=== PATIENT | male | born 1950 | race Asian ===

== ENCOUNTER → 2019-11-01 14:44 | Outpatient (CLI) | payer MEDICARE, SELFPAY ==
--- NOTE | 2019-11-01 14:59 | XR_ITS ---
PROCEDURE: XR CHEST 2V CLINICAL HISTORY: CHEST PAIN COMPARISON: No exams were available for comparison FINDINGS: The cardiomediastinal silhouette and pulmonary vascularity are within normal limits. The lungs are clear without infiltrates, suspicious nodules, or pleural effusions. Mild thoracic curvature convex right IMPRESSION: No acute findings. Dictated by: Randal Fitzpatrick MD 11/01/2019 15:38 Electronically signed by Randal Fitzpatrick MD in [place] 11/01/2019 15:38
--- NOTE | 2019-11-01 15:15 | ECG_ITS ---
APPROVED REPORT Exam: Resting ECG HR:74 bpm ECG Measurements Heart Rate 74 AXES MI 156 P 67 QRSd 82 QRS 42 QT 380 T 21 QTc 421 <Conclusion> Normal sinus rhythm Normal ECG Electronically signed by : Jesus Hernandez, 11/01/2019 17:45:20
[2019-11-01 16:00] LABS: Basophils % 0.3 % (0.1-2.0); Eosinophils # 0.2 K/mm3 (0.0-0.4); Eosinophils % 2.9 % (0.1-12.0); Hematocrit 45.8 % (42.0-52.0); Hemoglobin 15.7 g/dL (14.1-18.0); Lymphocytes # 2.2 K/mm3 (0.7-4.5); Lymphocytes % 30.4 % (10-50); Mean Corpuscular HGB Conc 34.2 g/dL (31.8-35.4); Mean Corpuscular Hemoglobin 28.8 pg (27.0-31.2); Mean Corpuscular Volume 84.1 fl (80-94); Mean Platelet Volume 8.6 fl (7.4-10.4); Monocytes # 0.4 K/mm3 (0.1-1.0); Monocytes % 5.7 % (1.7-9.3); Neutrophils # 4.3 K/mm3 (1.8-7.8); Neutrophils % 60.8 % (37.0-80.0); Platelet Count 229 K/mm3 (142-424); Red Blood Count 5.45 M/mm3 (4.60-6.20); Red Cell Distribution Width 12.5 % (11.5-17.5); White Blood Count 7.1 K/mm3 (4.8-10.8)
[2019-11-01 16:08] LABS: Chloride 98 mmol/L (98-107); Potassium 4.1 mmoL/L (3.5-5.1); Sodium 138 mmol/L (136-145)
[2019-11-01 16:11] LABS: Anion Gap 14.1 mEq/L (5-15); Blood Urea Nitrogen 12 mg/dl (9-20); Calcium 9.5 mg/dl (8.4-10.2); Carbon Dioxide 30 mmol/L (22.0-30.0); Creatine Kinase 75 U/L (55-170); Estimated Glomerular Filt Rate 96 ml/min (>60); GFR (African American) 116 ML/MIN (>60); Glucose 106 mg/dl (74-100)
[2019-11-01 16:17] LABS: CKMB Relative Index 2.8 U/L (0-4.0); Creatine Kinase MB 2.1 ng/ml (0.0-2.03)
[2019-11-01 16:27] LABS: Troponin I < 0.01 ng/ml (0.00-0.034)
[2019-11-01 16:32] LABS: Erythrocyte Sedimentation Rate 1 mm/hr (0-20)
== END ==
PROVIDERS: Visit Provider Family Medicine
DX: R07.9 Chest pain, unspecified (principal)
CPT/HCPCS: 36415; 71046; 80048; 82550; 82553; 84484; 85025; 85651; 93005

== ENCOUNTER → 2019-11-03 08:02 | Outpatient (CLI) | payer MEDICARE, SELFPAY ==
--- NOTE | 2019-11-03 | CA_ITS ---
APPROVED REPORT Exam: Exercise Treadmill Technologist: Shanice Steen Ht: 5 ft 6 in Wt: 165 lbs BSA: 1.84 m2 HR: 78 bpm BP: 127/69 mmHg Indications: Chest pain Medical History Medications: Fluid pill,,,,, Blood pressure,,,,, Stress Test Details Test: Nba HR Resting HR: 87 bpm Max Heart Rate (APMHR): 152 bpm Max HR Achieved: 144 bpm Target HR (85% APMHR): 129 bpm % of APMHR: 94 Recovery HR: 97 bpm BP Resting BP: 127.0/69.0 mmHg Max BP: 174.0/75.0 mmHg Recovery BP: 137.0/82.0 mmHg ECG Clinical Exercise duration: 05:03 min Highest Stage Achieved: Exercise capacity: 7.0 METs Stress ECG Conclusion Resting ECG: Normal sinus rhythm Patient walked 5:03 on Nba Protocol. Test stopped due to shortness of air, fatigue. Symptoms: No chest pain. Arrhythmias/Ectopy: None ST-T Changes: [address] depression anteriorly. 1mm horizontal ST depression inferiorly with T wave inversion. Conclusion: EKG changes positive for ischemia. GXT only (no images). Test Summary REST . . . . . . . Sitting REST . . . . . . . Standing REST 04:27 0.0 0.0 87 . 127/ 69 . . Stage 1 01:00 10.0 1.7 112 . . . . Stage 1 02:00 10.0 1.7 124 . . . . Stage 1 03:00 10.0 1.7 126 . . . . Stage 2 01:00 12.0 2.5 139 . . . . Stage 2 02:00 12.0 2.5 143 . . . . Stage 2 02:03 12.0 2.5 144 . . . Stop exercise at 05:03 RECOVERY 01:00 0.0 0.0 122 . 174/ 75 . . RECOVERY 02:00 0.0 0.0 110 . 174/ 75 . . RECOVERY 03:00 0.0 0.0 107 . 174/ 75 . . RECOVERY 04:00 0.0 0.0 106 . 155/ 85 . . RECOVERY 05:00 0.0 0.0 97 . 141/ 82 . . RECOVERY 06:00 0.0 0.0 97 . 141/ 82 . . RECOVERY 07:00 0.0 0.0 93 . 137/ 82 . . RECOVERY 07:19 0.0 0.0 91 . 137/ 82 . . Electronically signed by : Jesus Hernandez, 11/03/2019 14:21:14
== END ==
PROVIDERS: PCP Family Medicine; Visit Provider Family Medicine
DX: R07.9 Chest pain, unspecified (principal)
CPT/HCPCS: 93017

== ENCOUNTER 2019-11-17 08:32 | Day surgery (SDC) | payer MEDICARE, SELFPAY ==
[2019-11-17] VITALS (13 sets, daily range): BP systolic 90–127; BP diastolic 52–77; PULSE 66–82; RESP 15–20; TEMP 36.4–36.7; O2SAT 96–99; BMI 25.8
--- NOTE | 2019-11-17 | IR_ITS ---
APPROVED REPORT Patient Location: Outpatient PROCEDURES Left heart catheterization Left ventriculogram Selective coronary angiogram INDICATION Risk factors for coronary artery disease, Angina pectoris Informed consent was obtained prior to the procedure. COMPLICATIONS none Estimated Blood Loss: less than 10 mls TECHNIQUE One percent lidocaine used to anesthetize the right anterior aspect of the wrist. The right radial artery was accessed via the Seldinger technique. A 6 Finnish sheath was placed in the right radial artery. 2.5 mg of verapamil, 800 mcg of nitroglycerin, 1mg Lidocaine and 5000 U Heparin were given through the arterial sheath. The trap catheter was also used to perform left heart catheterization, left ventriculogram and selective coronary angiogram. At the end of the procedure the sheath was removed good hemostasis was achieved using Traclet band, patient was transferred to the postop holding area in stable condition. ANGIOGRAPHIC RESULTS The left main artery Has an ostial 20% narrowing which may be anatomical and non-atherosclerotic The left anterior descending artery Is proximally normal and has a mid vessel myocardial bridge compressing to 60 to 70% with systole at rest The circumflex artery Small nondominant normal The right coronary artery Is a large dominant vessel with a proximal 20% stenosis and a distal concentric 40 to 50% stenosis. 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 At this point I favor medical management. It is unlikely the myocardial bridge is creating any type of a flow disturbance. 2. The distal right coronary artery lesion is best managed medically. Lipitor 40 mg daily will be started with a goal LDL less than 55 3. Should patient continue to experience angina pectoris recalcitrant to medical management I would then consider proceeding with FFR or possible stenting of the distal dominant right coronary artery however this lesion should respond favorably to high intensity statin therapy and antianginal medications 4. Continue risk factor modification Electronically signed by : Hernesto Williamson, 11/17/2019 14:59:10
[2019-11-17 09:12] LABS: Basophils # 0.1 K/mm3 (0-0.2); Basophils % 0.8 % (0.1-2.0); Eosinophils # 0.3 K/mm3 (0.0-0.4); Eosinophils % 4.4 % (0.1-12.0); Hematocrit 43.2 % (42.0-52.0); Lymphocytes # 1.9 K/mm3 (0.7-4.5); Lymphocytes % 27.9 % (10-50); Mean Corpuscular HGB Conc 34.6 g/dL (31.8-35.4); Mean Corpuscular Hemoglobin 28.9 pg (27.0-31.2); Mean Corpuscular Volume 83.5 fl (80-94); Mean Platelet Volume 8.7 fl (7.4-10.4); Monocytes # 0.3 K/mm3 (0.1-1.0); Monocytes % 4.7 % (1.7-9.3); Neutrophils # 4.3 K/mm3 (1.8-7.8); Neutrophils % 62.2 % (37.0-80.0); Platelet Count 191 K/mm3 (142-424); Red Blood Count 5.18 M/mm3 (4.60-6.20); Red Cell Distribution Width 12.6 % (11.5-17.5); White Blood Count 6.9 K/mm3 (4.8-10.8)
[2019-11-17 09:16] LABS: Chloride 101 mmol/L (98-107)
[2019-11-17 09:17] LABS: Potassium 3.7 mmoL/L (3.5-5.1); Sodium 137 mmol/L (136-145)
[2019-11-17 09:19] LABS: Blood Urea Nitrogen 13 mg/dl (9-20); Creatinine Clearance Estimated 73 mL/min (50-200); Estimated Glomerular Filt Rate 96 ml/min (>60); GFR (African American) 116 ML/MIN (>60)
[2019-11-17 09:20] LABS: Anion Gap 13.7 mEq/L (5-15); Calcium 9.2 mg/dl (8.4-10.2); Carbon Dioxide 26 mmol/L (22.0-30.0); Glucose 106 mg/dl (74-100)
--- NOTE | 2019-11-17 12:08 | SUR.PHASEII ---
NO ARON OR ARB AT THIS TIME PER MD.
== END 2019-11-17 14:24 | disposition home or self-care (01) ==
LOC: CATHLAB 08:34
PROVIDERS: PCP Family Medicine; Visit Provider Internal Medicine
DX: I25.118 Atherosclerotic heart disease of native coronary artery with other forms of angina pectoris (principal); I10 Essential (primary) hypertension; Z79.899 Other long term (current) drug therapy
CPT/HCPCS: 80048; 85025; 93458; 99152; C1725; C1769; J1644; Q9967

== ENCOUNTER → 2021-03-19 11:55 | Outpatient (CLI) | payer MEDICARE, SELFPAY | PROVIDERS: PCP Family Medicine; Visit Provider Family Medicine | DX: I25.118 Atherosclerotic heart disease of native coronary artery with other forms of angina pectoris (principal) | CPT/HCPCS: 93225; 93226 ==

== ENCOUNTER → 2022-05-14 07:54 | Outpatient (CLI) | payer MEDICARE, SELFPAY ==
[2022-05-14 08:53] LABS: Alanine Aminotransferase 29 U/L (12-78); Albumin Level 4.3 g/dl (3.5-5.0); Alkaline Phosphatase 75 U/L (38-126); Aspartate Amino Transferase 27 U/L (17-59); Chol/HDL Ratio 2.6 (1-3.5); Cholesterol 111 mg/dl (140-200); HDL Cholesterol 43 mg/dl (40-60); Total Protein,Serum 7.1 g/dl (6.3-8.2); Triglycerides 78 mg/dl (30-150); VLDL Cholesterol 16 mg/dL (0-40)
== END ==
PROVIDERS: PCP Psychiatry & Neurology Sleep Medicine; Visit Provider Internal Medicine
DX: E78.2 Mixed hyperlipidemia (principal)
CPT/HCPCS: 36415; 80061; 80076

== ENCOUNTER 2024-08-25 16:00 | Outpatient (RCR) | payer MEDICARE, SELFPAY ==
--- NOTE | 2024-08-11 16:03 | HMH.PTOPEV ---
PT Outpatient Evaluation Rehab PT Outpatient Evaluation Start: 08/11/24 15:02 Freq: Status: Active Protocol: Document 08/11/24 15:02 NAYELY (Rec: 08/11/24 16:03 NAYELY [id number]) E-signed By Leslie Matute, PT Outpatient Therapy Subjective History Subjective History Pt is a 73 y/o male who reports chronic bilateral knee pain for 2 years. Pt denies known trauma or injury. Pt denies having recent imaging of his knees. Pt reports generalized knee pain that is aggravated by prolonged standing >20 minutes, walking 1/4 mile, traversing steps, and traversing uneven ground. Pt reports pain is minimal- moderate and improves with rest. Pt reports he is unable to run due to pain but does not have a goal to run. Pt denies swelling, paresthesia, catching/locking/popping, or instability. Work: Supervisor [employer] of [employer] Medical History: Hypertension, Allergies Edema: tibiofemoral joint line 38.5cm R, 39 cm L New diagnosis of cancer in past 12 No months? Chief Complaint Pain,Stiff Symptom Type Ache,Dull Symptoms Relieved By Rest/Positioning,Activity Symptoms Aggravated By Standing,Physical Activity, Walking Current Functional Limitations Standing,Recreation Activity, Walking,Stairs Symptom Description Constant but Variable Level of pain today (0-10) 0 Pain scale - at its best (0-10) 0 Pain scale - at its worst (0-10) 4 Hip/Knee Eval Gait Observation General Gait Pattern Observation No Deviations/Normal Assistive Device Assistive Devices None / NA Palpation Tenderness bilateral Knee Palpation Finding Tenderness Knee Palpation Overall Comment 1/4 TTP of medial tibiofemoral joint line MMT Hip Flexion Strength Grade 4 Good Hip Abduction Strength Grade 4 Good Hip Adduction Strength Grade 4 Good Hip Extension Strength Grade 4- Good- Knee Extension Strength Grade 4 Good Knee Flexion Strength Grade 4- Good- ROM left Knee Extension Active Range of Motion ( 0 degrees) Knee Flexion Active Range of Motion ( 125 degrees) right Knee Extension Active Range of Motion ( 0 degrees) Knee Flexion Active Range of Motion ( 125 degrees) Special Tests Knee Anterior Drawer Test Negative Left,Negative Right Knee Anterior Masha Test Negative Left,Negative Right Knee Posterior Sag ([place] Drawer) Test Negative Left,Negative Right Knee Valgus Stress Test Negative Left,Negative Right Knee Varus Stress Test Negative Left,Negative Right Knee Denise Test Negative Left,Negative Right Lower Extremity Functional Index Activities Today, do you or would you have any difficulty at all with: a.Any of your usual work, housework or No difficulty school activities b. Your usual hobbies, recreational or A little bit of difficulty sporting activities c. Getting into or out of the bath No difficulty d. Walking between rooms No difficulty e. Putting on your shoes or socks No difficulty f. Squatting No difficulty g. Lifting an object, like a bag of No difficulty groceries from the floor h. Performing light activities around No difficulty your home i. Performing heavy activities around No difficulty your home j. Getting into or out of a car No difficulty k. Walking 2 blocks No difficulty l. Walking a mile A little bit of difficulty m. Going up or down 10 stairs (about 1 No difficulty flight of stairs) n. Standing for 1 hour A little bit of difficulty o. Sitting for 1 hour No difficulty p. Running on even ground Quite a bit of difficulty q. Running on uneven ground Quite a bit of difficulty r. Making sharp turns while running fast Quite a bit of difficulty s. Hopping A little bit of difficulty t. Rolling over in bed No difficulty LEFI Score Lower Extremity Functional Index Score 67 Outpatient Therapy Assessment Impairments Problems/Impairmments Palpation Tenderness,Impaired Strength,Impaired Walking, Impaired Standing,Impaired Stair Climbing,Impaired Incline Stepping,Impaired Work Activities,Subjective C/O Pain,Impaired Self Care/Self Management Prognosis Rehab Potential Good Clinical Impression Consistent with Diagnosis Yes Short Term Goals Number of Weeks 3 Improve Self Care/Self Management Yes Patient to be Ind w/ HEP Yes Penitentiary Goals Number of Weeks 6 Increase Strength Yes: Improve BLE MMT to 4+-5/5 grossly to assist with function Increase Ability to Walk Yes: .5 mile with pain 2/10 or less to assist with occupation Increase Ability to Stand Yes: 30 minutes with pain 2/10 or less to assist with occupation Improve Ability to Climb Stairs Yes: 1 flight reciprocally without pain to assist with work navigation Improve LEFI Score Yes: Improve score to 72/80 to improve overall QOL Decrease Subjective C/O Pain Yes: Improve pain at worst to 2/10 to improve overall QOL Outpatient Therapy Plan of Care Treatment Plan May Include Therapeutic Exercise Including Home Yes Exercise Program Manual Therapy Techniques Yes Neuromuscular Re-education Yes Therapeutic Activities to Return to Yes Previous Functional/Work Level Gait Training Yes ADL/Self Care Education Yes Dry Needling Yes Thermal Modalities Yes Electrical Stimulation Yes Ultrasound/Phonophoresis Yes Iontophoresis Yes Orthotics/Bracing/Splinting Yes Vasopneumatic Compression Pump Yes Massage Yes Group Therapy for Medicare Yes Eval/Re-Eval Yes Frequency Times per week 1-2 Duration Number of Weeks 4-6 Addendums This patient is a candidate for social No or vocational rehab? Patient/Guardian verbally acknowledges Yes understanding of treatment program and consents to further treatment? Patient/Guardian verbally acknowledges Yes understanding of diagnosis, prognosis and goals for treatment? Eval Complexity PT Charges 21609 - Low Complexity Shoulder/Elbow Eval Shoulder Objective Measurements Elbow Objective Measurements PHYSICIAN CERTIFICATION: I certify the specified therapy services for Pablo Alford are required, authorized, and reviewed every 30 days.
== END 2024-08-25 23:59 | disposition home or self-care (01) ==
LOC: PT 16:00
PROVIDERS: Visit Provider Family Medicine
DX: M25.561 Pain in right knee (principal); M25.562 Pain in left knee
CPT/HCPCS: 97110; 97163; 97530

== ENCOUNTER 2024-09-15 15:00 | Outpatient (RCR) | payer MEDICARE, SELFPAY ==
--- NOTE | 2024-09-08 15:26 | HMH.RHREAS ---
Rehab Reassessment Rehab OP Re-assessment Start: 09/01/24 14:59 Freq: Status: Active Protocol: Document 09/08/24 15:06 SUSANJONATHAN (Rec: 09/08/24 15:26 MOHITGomez [id number]) E-signed By Leslie Matute PT Lower Extremity Functional Index Activities Today, do you or would you have any difficulty at all with: a.Any of your usual work, housework or No difficulty school activities b. Your usual hobbies, recreational or Moderate difficulty sporting activities c. Getting into or out of the bath No difficulty d. Walking between rooms No difficulty e. Putting on your shoes or socks No difficulty f. Squatting No difficulty g. Lifting an object, like a bag of No difficulty groceries from the floor h. Performing light activities around No difficulty your home i. Performing heavy activities around No difficulty your home j. Getting into or out of a car No difficulty k. Walking 2 blocks No difficulty l. Walking a mile A little bit of difficulty m. Going up or down 10 stairs (about 1 No difficulty flight of stairs) n. Standing for 1 hour No difficulty o. Sitting for 1 hour No difficulty p. Running on even ground Quite a bit of difficulty q. Running on uneven ground Quite a bit of difficulty r. Making sharp turns while running fast Quite a bit of difficulty s. Hopping No difficulty t. Rolling over in bed No difficulty LEFI Score Lower Extremity Functional Index Score 68 Rehab Re-assessment Subjective Subjective Pt reports he feels 40% improved since starting PT. Pt reports continued minimal- moderate bilateral medial knee pain with prolonged standing and walking >15 minutes. Pt also reports stiffness of B knee with prolonged standing. Pt reports compliance with HEP which he states is helping overall. Objective Objective Notes TTP: 05/01 medial tibiofemoral joint line B BLE MMT: 07/31 grossly Assessment Assessment Notes Pt has attended 4 PT treatment sessions 1x/week per pt request along with HEP. Pt continues to report stiffness and minimal-moderate bilateral medial knee pain with functional activities such as prolonged standing, walking and stair climbing required for his occupation. Pt will continue to benefit from skilled PT to further improved subjective report of pain, BLE strength, and functional/ occupational activity tolerance to improve overall QOL. Patient goals met ST/2 LT/6 Goals Not Met p! at worst, strength, LEFS score, work activities Revised Goals n/a Plan Plan Continue POC Frequency of Therapy 1-2x/week Duration of therapy 4 more weeks Time and Billing Re-Eval Time 10 Re-Eval Billing Units 0 Charge for PT reassessment? No Charge for OT reassessment? No PHYSICIAN CERTIFICATION: I certify the specified therapy services for Pablo L Prashanth are required, authorized, and reviewed every 30 days.
== END 2024-09-15 23:59 | disposition home or self-care (01) ==
LOC: PT 15:00
PROVIDERS: Visit Provider Family Medicine
DX: M25.562 Pain in left knee (principal); M25.561 Pain in right knee
CPT/HCPCS: 97110

== ENCOUNTER 2024-11-15 08:05 | Outpatient (CLI) | payer MEDICARE, SELFPAY ==
--- OUTSIDE RECORDS SUMMARY | 2024-02-06 06:15 | XMS_ITS ---
[facility] [address] [facility] [address] [place] [id number] Care Team Providers Care Fur Scraper Name Role Phone Harry Cabrera Primary Care Provider Allergies No Known Allergies Results Component Value Reference Range Notes Cologuard Reviewed date:04/14/2024 03:39:19 PM Interpretation:Negative Performing Lab: Notes/Report: Negative Cologuard Negative P-Vitamin B12 Reviewed date:02/10/2024 04:16:48 PM Interpretation:297 Performing Lab: Notes/Report: Test performed by [facility] [address] [place] [address] , [address], [place] [address] Audi Ordonez MD, Tow Operator CLIA: [id number] Vitamin B12 850 028-0340 pg/mL P-Comprehensive Metabolic Pa melodie (CMP) Reviewed date:02/10/2024 04:16:48 PM Interpretation:gluc 102 Performing Lab: Notes/Report: Test performed by [facility] [address] [place] [address] , [address], [place] [address] Audi Ordonez MD, Tow Operator CLIA: [id number] Sodium 139 135-145 mmol/L Potassium 4.3 3.5-5.3 mmol/L Chloride 103 97-108 mmol/L CO2 27 22-32 mmol/L Glucose 102 65-99 mg/dL BUN 12 8-23 mg/dL Creatinine 0.92 0.70-1.30 mg/dL Calcium 9.4 8.6-10.4 mg/dL eGFR by Creatinine 88 >59 mL/min/1.73m2 Protein 7.1 6.0-8.3 g/dL Albumin 4.4 3.5-5.3 g/dL Alkaline Phosphatase 74 40-129 IU/L ALT (SGPT) 21 <5-55 IU/L AST (SGOT) 23 <5-46 IU/L Bilirubin, Total 1.2 <0.2-1.2 mg/dL A/G Ratio 1.6 1.1-2.5 P-PSA Reviewed date:02/10/2024 04:16:48 PM Interpretation:Normal Performing Lab: Notes/Report: Test performed by [facility] [address] [place] [address] , [address], [place] [address] Audi Ordonez MD, Tow Operator CLIA: [id number] PSA 0.34 <4.00 ng/mL Please note this is an ultrasensitive PSA assay with a lower limit of detection of 0.014 ng/mL. This test is performed by the Francine ECLIA methodology. Values obtained with different assay methods or kits cannot be directly compared. REASON FOR VISIT checkup, Needs labs with PSA, colon cancer screening, Prevnar, & flu vaccines Medications Medication SIG (Take, Route, Frequency, Duration) Notes Start Date End Date Status B-12 1000 MCG 1 tab(s) orally once a day; Duration: 30 day(s) 11/26/2018 Active Isosorbide Mononitrate ER 60 MG 1 tab(s) orally once a day (in the evening) Active Metoprolol Succinate ER 25 MG TK 1 T PO DAILY; Duration: 30 Active Triamcinolone Acetonide 0.1 % 1 application Externally Twice a day 02/06/2024 Active Aspirin 81 MG 1 tab(s) orally bedtime 03/22/2015 Active Levocetirizine Dihydrochloride 5 MG 1 tab(s) orally once a day (in the evening); Duration: 90 days Active Valsartan-hydroCHLOROthiazid e 80-12.5 MG 1 tab(s) orally once a day Active CoQ10 200 MG as directed orally o nce a day; Duration: 30 day(s) 08/01/2020 Active Atorvastatin Calcium 40 MG 1 tab(s) oral ly once a day Active Nitroglycerin 0.4 MG one tablet under to ngue as needed for chest pain every 5 minutes Active Immunizations Vaccine Route Administration Date Status Comme nts Fluzone High Dose (65yr and older) IM Intramuscular 02/06/2024 Administered Prevnar (PCV20) IM Intramuscular 02/06/2024 Administered Problems Problem Type SNOMED Code ICD Code Onset Dates Problem Status W/U Status Risk Notes Problem Allergic rhinitis, unspecified seasonality, unspecified trigger (J30.9) Active confirmed Vital Signs Blood pressure systolic 120 mm Hg 02/06/20 24 Blood pressure diastolic 66 mm Hg 024 Heart Rate 66 /min 02/06/2024 Height 65.50 in 02/06/2024 Weight 164.8 lbs 02/06/2024 BMI 27.00 kg/m2 02/06/2024 Encounters Encounter Location Date Provider Diagnosis [facility] [address] [place] [id number] 02/06/2024 Harry Cabrera Essential (primary) hypertension I10 ; Coronary artery disease involving tangirnaq coronary artery of tangirnaq heart with other form of angina pectoris I25.118 ; Vitamin B12 deficiency E53.8 ; Benign prostatic hyperplasia without lower urinary tract symptoms, prostatic enlargement of unspecified morphology N40.0 ; Rhus dermatitis L25.5 ; Allergic rhinitis, unspecified seasonality, unspecified trigger J30.9 ; Screen for colon cancer Z12.11 and Encounter for immunization Z23 Assessments Encounter Date Diagnosis (ICD Code) Assessment Notes Treatment Notes Treatment Clinical Notes Section Notes 02/06/2024 Essential (primary) hypertension (ICD-10 - I10) 02/06/2024 Coronary artery disease involving tangirnaq coronary artery of tangirnaq heart with other form of angina pectoris (ICD-10 - I25.118) 02/06/2024 Vitamin B12 deficiency (ICD-10 - E53.8) 02/06/2024 Benign prostatic hyperplasia without lower urinary tract symptoms, prostatic enlargement of unspecified morphology (ICD-10 - N40.0) 02/06/2024 Rhus dermatitis (ICD-10 - L25.5) 02/06/2024 Allergic rhinitis, unspecified seasonality, unspecified trigger (ICD-10 - J30.9) 02/06/2024 Screen for colon cancer (ICD-10 - Z12.11) 02/06/2024 Encounter for immunization (ICD-10 - Z23) Plan Of Treatment Medication Medication Name Sig Start Date Stop Date Notes Triamcinolone Acetonide 0.1 % 1 applicat ion Externally Twice a day 02/06/2024 Levocetirizine Dihydrochlori de 5 MG 1 tab(s) orally once a day (in the evening); Duration: 90 days Valsartan-hydroCHLOROthiazid e 80-12.5 MG 1 tab(s) orally once a day Next Appt Details Follow Up: 6 Months, Reason: Progress Notes * Pablo PLASENCIADOB:1950 (74 yo M)Acc No.[id number]:02/06/2024 Progress Notes Patient: Pablo LACY Provider: Harry Cabrera M.D. :1950 A ge:73 Y S ex:Male Date:02/06/2024 Address:[address] [place] [address] [address] [facility] [id number] Subjective: * Chief Complaints: * 1 . Checkup. 2. Needs labs with PSA, colon cancer screening, Prevnar, & flu vaccines. * HPI: C ardiology: The patient is here today for a check up on Hypertension and Hyperlipidemia. Pt states he doing good and denies any new concerns. Pt is not fasting. Pt states he is needing a refill for Levocetirizine and Valsartan/Hct sent to [facility]. Pt states he would like a prescription for the Triamcinolone cream as well. Denies : Chest Pain. D enies : Short of Breath. D enies : Dizziness. D enies : Palpitations. D ermatology: c/o rash f rom cutting weeds. * ROS: D ERMATOLOGY: no R sanya. n o H schuyler. G ASTROENTEROLOGY: no N ausea. n o V omiting. n o D iarrhea.? U ROLOGY: no D ifficulty urinating. n o B lood in urine. * Medical History: C oronary Artery Disease, Hypertension, Vitamin B 12 deficiency, BPH. * Surgical History: h eart Cath 11/2019. * Family History: F ather: 71 yrs, pancreatitis. M other: alive, hypertension, COPD. S iblings: brother with diabetes. 1 brother(s) , 4 sister(s) . 1 son(s) , 1 daughter(s) . . * Social History: C URRENT TOBACCO USE S moking Status: Patient does NOT smoke. C affeine: yes, frequency:coffee. Home smoke detector use: yes. Marital Status: . Past smoking status: no. Alcohol: Yes, Type: , Frequency: ,Years: , Determination:3-4 days each week. * Medications: T aking Aspirin 81 MG Tablet Chewable 1 tab(s) orally bedtime , Taking B-12 1000 MCG Tablet 1 tab(s) orally once a day , Taking Metoprolol Succinate ER 25 MG Tablet Extended Release 24 Hour TK 1 T PO DAILY , Taking Isosorbide Mononitrate ER 60 MG Tablet Extended Release 24 Hour 1 tab(s) orally once a day (in the evening) , Taking Atorvastatin Calcium 40 MG Tablet 1 tab(s) orally once a day , Taking CoQ10 200 MG Capsule as directed orally once a day , Taking Nitroglycerin 0.4 MG Tablet Sublingual one tablet under tongue as needed for chest pain every 5 minutes , Taking Valsartan-hydroCHLOROthiazide 80-12.5 MG Tablet 1 tab(s) orally once a day , Taking Levocetirizine Dihydrochloride 5 MG Tablet 1 tab(s) orally once a day (in the evening) , Medication List reviewed and reconciled with the patient * Allergies: N .K.D.A. Objective: * Vitals: W t:164.8, Temp:98.4, BP:120/66, HR:66, Nurse:ANJALI, Ht: 65.50, BMI:27.00. * Examination: G eneral Examination: General Appearance: N AD. H EENT: u nremarkable.?Oral cavity: n o lesions, mucosa moist and WNL, no erythema. N sridhar: s upple, no lymphadenopathy. C hest: n ormal shape and expansion. H eart: R SR. L ungs: c lear to auscultation. N eurologic Exam: I ntact, gait normal. S kin: n ormal, r esolving rash of the left lower leg and of the forearms c/w rhus. P eripheral pulses: n ormal (2+) bilaterally. E xtremities: n o leg edema. Assessment: * Assessment: 1. E ssential (primary) hypertension - I10 (Primary) 2 . C oronary artery disease involving tangirnaq coronary artery of tangirnaq heart with other form of angina pectoris - I25.118? 3. V itamin B12 deficiency - E53.8 4 . B enign prostatic hyperplasia without lower urinary tract symptoms, prostatic enlargement of unspecified morphology - N40.0 5 . R hus dermatitis - L25.5 6 . A llergic rhinitis, unspecified seasonality, unspecified trigger - J30.9 7 . S creen for colon cancer - Z12.11 8 . E ncounter for immunization - Z23 Plan: * Treatment: Value Reference Range A /G Ratio 1.6 1.1-2.5 - * A lbumin 4.4 3.5-5.3 - g/dL * A lkaline Phosphatase 74 40-129 - IU/L * A LT (SGPT) 21 <5-55 - IU/L * A ST (SGOT) 23 <5-46 - IU/L * B ilirubin, Total 1.2 <0.2-1.2 - mg/dL * B UN 12 8-23 - mg/dL * C alcium 9.4 8.6-10.4 - mg/dL * C hloride 103 97-108 - mmol/L * C O2 27 22-32 - mmol/L * C reatinine 0.92 0.70-1.30 - mg/dL * G lucose 102 H 65-99 - mg/dL * P otassium 4.3 3.5-5.3 - mmol/L * S odium 139 135-145 - mmol/L * P rotein 7.1 6.0-8.3 - g/dL * e GFR by Creatinine 88 >59 - mL/min/1.73m2 * Cherelle Mcknight 02/10/2024 4:16 :39 PM >See phone encounter 2.?Vitamin B12 deficiency?LAB: P-Vitamin B12 (Collection Date & Time - 02/06/2024 10:05 AM)?297* Value Reference Range V itamin B12 760 295-2437 - pg/mL * Cherelle Mcknight 02/10/2024 4:16 :39 PM >See phone encounter 3.?Benign prostatic hyperplasia without lower urinary tract symptoms, prostatic enlargement ofunspecified morphology?LAB: P-PSA (Collection Date & Time - 02/06/2024 10:05 AM)?Normal* Value Reference Range P SA 0.34 <4.00 - ng/mL * Cherelle Mcknight 02/10/2024 4:16 :39 PM >See phone encounter 4.?Allergic rhinitis, unspecified seasonality, unspecified trigger? Refill Levocetirizine Dihydrochloride Tablet, 5 MG, 1 tab(s), orally, once a day (in the evening), 90 days, 90, Refills 1.??5.?Screen for colon cancer?LAB: Cologuard (Collection Date & Time - 02/26/2024)?Negative* Value Reference Range C ologuard Negative * Opal Almanzar 02/11/2024 11: 04:08 AM > order submitted onlineLorna Ta 04/14/2024 3:39:11 PM > , Patient informed of normal results. * Immunizations: Fluzone High Dose (65yr and older) : 0.5 mL (Route: Intramuscular) given by Lorna Ta on Right Deltoid (Encounter for immunization) Prevnar (PCV20) : 0.5 mL (Route: Intramuscular) given by Lorna Ta on Left Deltoid (Encounter for immunization) * Follow Up: 6 Months * Images: Billing Information: * Visit Code: 55945 Office Visit, Est Pt., Level 4. * Procedure Codes: * Electronic signature of Harry Cabrera MD on 11/15/2024 at 08:07 AM EDT Sign off status: Pending * Provider: Harry Cabrera M.D. Date: 1 Generated for Corneliusi ng/Fashereeng/eTransmitting on: 0 11/15/2024 08:07 AM EDT History and Physical Notes * HPI (History of Present Illness) Category Sub-Category Detail Notes Category Not es Dermatology rash from cutting weeds Cardiology Short of Breath Chest Pain Palpitations Dizziness Examination Category Sub-Category Detail Notes Category Not es General Examination HEENT: unremarkable Heart: RSR Lungs: clear to auscultatio n Extremities: no leg edema General Appearance: NAD Skin: normal, resolving ra sh of the left lower leg and of the forearms c/w rhus Neurologic Exam: Intact, gait normal Neck: supple, no lymphaden opathy Oral cavity: no lesions, mucosa m oist and WNL, no erythema Peripheral pulses: normal (2+) bilatera lly Chest: normal shape and exp ansion
--- OUTSIDE RECORDS SUMMARY | 2024-08-02 06:30 | XMS_ITS ---
Author Organization [facility] Address [address] [facility] [address] [place] [id number] Care Team Providers Care Infant Caregiver Name Role Phone Harry Cabrera Primary Care Provider Allergies No Known Allergies Results Component Value Reference Range Notes P-Vitamin B12 Reviewed date:08/05/2024 04:17:44 PM Interpretation:Normal Performing Lab: Notes/Report: Test performed by [employer] [address] [place] [address] , [address], [place] [address] Audi Ordonez MD, [employer] CLIA: [id number] Vitamin B12 [phone] pg/mL P-Comprehensive Metabolic Pa melodie (CMP) Reviewed date:08/05/2024 04:17:44 PM Interpretation:Normal Performing Lab: Notes/Report: Test performed by [employer] [address] [place] [address] , [address], [place] [address] Audi Ordonez MD, [employer] CLIA: [id number] Sodium 139 135-145 mmol/L Potassium 4.1 3.5-5.3 mmol/L Chloride 105 97-108 mmol/L CO2 22 22-32 mmol/L Glucose 102 65-99 mg/dL BUN 12 8-23 mg/dL Creatinine 0.86 0.70-1.30 mg/dL Calcium 9.1 8.6-10.4 mg/dL eGFR by Creatinine 91 >59 mL/min/1.73m2 Protein 6.6 6.0-8.3 g/dL Albumin 4.3 3.5-5.3 g/dL Alkaline Phosphatase 83 40-129 IU/L ALT (SGPT) 20 <5-55 IU/L AST (SGOT) 20 <5-46 IU/L Bilirubin, Total 0.9 <0.2-1.2 mg/dL A/G Ratio 1.9 1.1-2.5 Reason For Referral Reason knee arthropathy and pain Diagnosis 1 Knee pain (M25.569) Referral Organization [facility] Referring Provider First Name Harry Liriano Referring Provider Last Name Rick Referring Provider Speciality Family Pra ctice Referred Provider Specialty Physical The rapist General Notes Paola Inman 2024 11:43:50 AM > faxed to [facility] PT Referral Priority Routine REASON FOR VISIT check up for refills, Needs labs Medications Medication SIG (Take, Route, Frequency, Duration) Notes Start Date End Date Status CoQ10 200 MG as directed orally o nce a day; Duration: 30 day(s) 08/01/2020 Active Triamcinolone Acetonide 0.1 % 1 application Externally Twice a day 02/06/2024 Active Valsartan-hydroCHLOROthiazid e 80-12.5 MG 1 tab(s) orally once a day Active Levocetirizine Dihydrochloride 5 MG 1 tab(s) orally once a day (in the evening); Duration: 90 days Active Nitroglycerin 0.4 MG one tablet under to ngue as needed for chest pain every 5 minutes Active Atorvastatin Calcium 40 MG 1 tab(s) oral ly once a day Active Isosorbide Mononitrate ER 60 MG 1 tab(s) orally once a day (in the evening) Active Metoprolol Succinate ER 25 MG TK 1 T PO DAILY; Duration: 30 Active B-12 1000 MCG 1 tab(s) orally once a day; Duration: 30 day(s) 11/26/2018 Active Aspirin 81 MG 1 tab(s) orally bedtime 03/22/2015 Active Problems Problem Type SNOMED Code ICD Code Onset Dates Problem Status W/U Status Risk Notes Problem Arthropathy (012950335) Arthropathy (M12.9) Active confirmed Problem Knee pain (0149093129) Knee pain (M25.569) Active confirmed Problem Pure hypercholesterolemia (885993060) Pure hypercholesterolemia (E78.00) Active confirmed Vital Signs Blood pressure systolic 120 mm Hg 08/03/19 25 Blood pressure diastolic 70 mm Hg 025 Heart Rate 77 /min 08/02/2024 Height 65.50 in 08/02/2024 Weight 166.8 lbs 08/02/2024 BMI 27.33 kg/m2 08/02/2024 Encounters Encounter Location Date Provider Diagnosis [facility] [address] [facility] [address] [place] [id number] 08/02/2024 Harry Cabrera Vitamin B12 deficien cy E53.8 ; Essential (primary) hypertension I10 ; Pure hypercholesterolemia E78.0 ; Arthropathy M12.9 ; Knee pain M25.569 ; BMI 27.0-27.9,adult Z68.27 and Pure hypercholesterolemia E78.00 Assessments Encounter Date Diagnosis (ICD Code) Assessment Notes Treatment Notes Treatment Clinical Notes Section Notes 08/02/2024 Vitamin B12 deficien cy (ICD-10 - E53.8) 08/02/2024 Essential (primary) hypertension (ICD-10 - I10) 08/02/2024 Pure hypercholesterolemia (ICD-10 - E78.0) 08/02/2024 Arthropathy (ICD-10 - M12.9) 08/02/2024 Knee pain (ICD-10 - M25.569) 08/02/2024 BMI 27.0-27.9,adult (ICD-10 - Z68.27) 08/02/2024 Pure hypercholesterolemia (ICD-10 - E78.00) Plan Of Treatment Referrals Referral Date Details 08/02/2024 08/02/2024, knee art hropathy and pain Next Appt Details Follow Up: 5M, Reason: Medications Administered Medication Instructions Date of Administration Dosage Notes B-12 08/02/2024 1 mL Progress Notes * Pablo PLASENCIADOB:1950 (74 yo M)Acc No.[id number]:08/02/2024 Progress Notes Patient: Pablo LACY Provider: Harry Cabrera M.D. :1950 A ge:73 Y S ex:Male Date:08/02/2024 Address:[address] [place], [place] [id number] [id number] Subjective: * Chief Complaints: * 1 . Check up for refills. 2. Needs labs. * HPI: C ardiology: The patient is here for a check up on Hypertension and Hyperlipidemia. Pt states he is doing good and denies any new concerns. Pt states he is not fasting. Denies : Chest Pain. D enies : Short of Breath. D enies : Dizziness. D enies : Palpitations. * ROS: D ERMATOLOGY: no R sanya. [...] chest pain every 5 minutes , Taking Levocetirizine Dihydrochloride 5 MG Tablet 1 tab(s) orally once a day (in the evening) , Taking Valsartan-hydroCHLOROthiazide 80-12.5 MG Tablet 1 tab(s) orally once a day , Taking Triamcinolone Acetonide 0.1 % Ointment 1 application Externally Twice a day , Medication List reviewed and reconciled with the patient * Allergies: N .K.D.A. Objective: * Vitals: W t:166.8, Temp:98.3, BP:120/70, HR:77, Nurse:ANJALI, Ht: 65.50, BMI:27.33. * Examination: G eneral Examination: General Appearance: N AD. H EENT: u nremarkable.?Oral cavity: n o lesions, mucosa moist and WNL, no erythema. N sridhar: s upple, no lymphadenopathy. C hest: n ormal shape and expansion. H eart: R SR. Note low BP today. Lungs: c lear to auscultation. N eurologic Exam: I ntact, gait normal. S kin:?normal, no rash. P eripheral pulses: n ormal (2+) bilaterally. E xtremities: n o leg edema. Assessment: * Assessment: 1. V itamin B12 deficiency - E53.8 (Primary) 2 . E ssential (primary) hypertension - I10 3 . P ure hypercholesterolemia - E78.0 4 . A rthropathy - M12.9 5 . K nee pain - M25.569 6 . B UT 27.0-27.9,adult - Z68.27 7 . P ure hypercholesterolemia - E78.00 Plan: * Treatment: Value Reference Range V itamin B12 [phone] - pg/mL * Lorna Ta 08/05/2024 4:1 7:27 PM >Patient informed of normal results. 2.?Essential (primary) hypertension?LAB: P-Comprehensive Metabolic Panel (CMP) (Collection Date & Time - 08/02/2024 10:16 AM)?Normal* Value Reference Range A /G Ratio 1.9 1.1-2.5 - * A lbumin 4.3 3.5-5.3 - g/dL * A lkaline Phosphatase 83 40-129 - IU/L * A LT (SGPT) 20 <5-55 - IU/L * A ST (SGOT) 20 <5-46 - IU/L * B ilirubin, Total 0.9 <0.2-1.2 - mg/dL * B UN 12 8-23 - mg/dL * C alcium 9.1 8.6-10.4 - mg/dL * C hloride 105 97-108 - mmol/L * C O2 22 22-32 - mmol/L * C reatinine 0.86 0.70-1.30 - mg/dL * G lucose 102 H 65-99 - mg/dL * P otassium 4.1 3.5-5.3 - mmol/L * S odium 139 135-145 - mmol/L * P rotein 6.6 6.0-8.3 - g/dL * e GFR by Creatinine 91 >59 - mL/min/1.73m2 * Lorna Ta 08/05/2024 4:1 7:27 PM >Patient informed of normal results. 3.?Knee pain? Referral To:Physical Therapist ?Reason:knee arthropathy and pain * Therapeutic Injections: B-12 : 1 mL (Route: Intramuscular) given by Lorna Ta on right deltoid (Vitamin B12 deficiency) * Procedure Codes: G 2211 Complex e/m visit add on, J3420 B-12, 80212 ADMINISTRATION OF INJECTION, 3074F SYST BP LT 130 MM HG, 3078F DIAST BP < 80 MM HG * Follow Up: 5 M * Images: Billing Information: * Visit Code: 52286 Office Visit, Est Pt., Level 4. Modifiers: 25 * Procedure Codes: G2211 Complex e/m visit add on. J3420 B-12. 96688 ADMINISTRATION OF INJECTION. 3074F SYST BP LT 130 MM HG. 3078F DIAST BP < 80 MM HG. * Electronic signature of Harry Cabrera MD on 11/15/2024 at 08:07 AM EDT Sign off status: Pending * Provider: Harry Cabrera M.D. Date: 0 08/02/2024 Generated for Floridalma muñoz/Gillian/Christinaitting on: 0 11/15/2024 08:07 AM EDT History and Physical Notes * HPI (History of Present Illness) Category Sub-Category Detail Notes Category Not es Cardiology Short of Breath Chest Pain Palpitations Dizziness Examination Category Sub-Category Detail Notes Category Not es General Examination HEENT: unremarkable Heart: RSR. Note low BP tod ay Lungs: clear to auscultatio n Extremities: no leg edema General Appearance: NAD Skin: normal, no rash Neurologic Exam: Intact, gait normal Neck: supple, no lymphaden opathy Oral cavity: no lesions, mucosa m oist and WNL, no erythema Peripheral pulses: normal (2+) bilatera lly Chest: normal shape and exp ansion Consultation Request Notes Referral Date Referring Provider Referred Provider Not es 08/02/2024 Harry Cabrera , knee arthr opathy and pain
--- OUTSIDE RECORDS SUMMARY | 2024-08-06 06:15 | XMS_ITS ---
Author Organization [facility] Address [address] [facility] [address] [place] [id number] Care Team Providers Care Counselor Dormitory Name Role Phone Harry Cabrera Primary Care Provider REASON FOR VISIT 6 months Encounters Encounter Location Date Provider Diagnosis [facility] [address] [facility] [address] [place] [phone] 08/06/2024 Harry Cabrera Plan Of Treatment No Information Progress Notes * Pablo PLASENCIADOB:1950 (74 yo M)Acc No.[id number]:08/06/2024 Progress Notes Patient: Pablo LACY Provider: Harry Cabrera M.D. :1950 A ge:73 Y S ex:Male Date:08/06/2024 Address:[address] [facility] [address] [id number] Subjective: * Chief Complaints: * 1 . 6 months. * Medical History: Objective: * Vitals: Assessment: Plan: * Treatment: * Images: Billing Information: * Visit Code: * Procedure Codes: * Electronic signature of Harry Cabrera MD on 11/15/2024 at 08:07 AM EDT Sign off status: Pending * Provider: Harry Cabrera M.D. Date: 08/06/2024 Generated for Corneliusi ng/Fashereeng/eTransmitting on: 0 11/15/2024 08:07 AM EDT
--- OUTSIDE RECORDS SUMMARY | 2024-11-15 08:08 | XMS_ITS | Patient Health Record ---
[facility] [address] [facility] [address] [place] [id number] Care Team Providers Care Negative Cleaner Name Role Phone Harry Cabrera Primary Care Provider Allergies No Known Allergies Results Component Value Reference Range Notes Cologuard Reviewed date:04/14/2024 03:39:19 PM Interpretation:Negative Performing Lab: Notes/Report: Negative Cologuard Negative P-Vitamin B12 Reviewed date:02/10/2024 04:16:48 PM Interpretation:297 Performing Lab: Notes/Report: Test performed by [email or web address] [address] [place] [address] , [address], [place] [address] Audi Ordonez MD, Utilization Reviewer CLIA: [id number] Vitamin B12 011 880-3401 pg/mL P-Comprehensive Metabolic Pa melodie (CMP) Reviewed date:02/10/2024 04:16:48 PM Interpretation:gluc 102 Performing Lab: Notes/Report: Test performed by [email or web address] [address] [place] [address] , [address], [place] [address] Audi Ordonez MD, Utilization Reviewer CLIA: [id number] Sodium 139 135-145 mmol/L Potassium 4.3 3.5-5.3 [...] Interpretation:Normal Performing Lab: Notes/Report: Test performed by [email or web address] [address] [place] [address] , [address], [place] [address] Audi Ordonez MD, Utilization Reviewer CLIA: [id number] PSA 0.34 <4.00 ng/mL Please note this is an ultrasensitive PSA assay with a lower limit of detection of 0.014 ng/mL. This test is performed by the [employer] ECLIA methodology. Values obtained with different assay methods or kits cannot be directly compared. P-Vitamin B12 Reviewed date:08/05/2024 04:17:44 PM Interpretation:Normal Performing Lab: Notes/Report: Test performed by [email or web address] [address] [place] [address] , [place] [address] Audi Ordonez MD, Utilization Reviewer CLIA: [id number] Vitamin B12 763 592-2408 pg/mL P-Comprehensive Metabolic Pa melodie (CMP) Reviewed date:08/05/2024 04:17:44 PM Interpretation:Normal Performing Lab: Notes/Report: Test performed by [email or web address] [address] [place] [address] , [place] [address] Audi Ordonez MD, Utilization Reviewer CLIA: [id number] Sodium 139 135-145 mmol/L Potassium 4.1 3.5-5.3 [...] Inman 2024 11:43:50 AM > faxed to [facility] PT Referral Priority Routine Medications Medication SIG (Take, Route, Frequency, Duration) Notes Start Date End Date Status CoQ10 200 MG as directed orally o nce a day; Duration: 30 day(s) 08/01/2020 Active Atorvastatin Calcium 40 MG 1 tab(s) oral ly once a day Active Nitroglycerin 0.[address] 1 TABLET UNDE R THE TONGUE NEEDED FOR CHEST PAIN EVERY 5 MINUTES; Duration: 30 Active Isosorbide Mononitrate ER 60 MG 1 tab(s) orally once a day (in the evening) Active Metoprolol Succinate ER 25 MG TK 1 T PO DAILY; Duration: 30 Active B-12 1000 MCG 1 tab(s) orally once a day; Duration: 30 day(s) 11/26/2018 Active Aspirin 81 MG 1 tab(s) orally bedtime 03/22/2015 Active Triamcinolone Acetonide 0.1 % 1 application Externally Twice a day 02/06/2024 Active Valsartan-hydroCHLOROthiazid e 80-12.5 MG 1 tab(s) orally once a day Active Levocetirizine Dihydrochloride 5 MG 1 tab(s) orally once a day (in the evening); Duration: 90 days Active Immunizations Vaccine Route Administration Date Status Comme nts Prevnar (PCV20) IM Intramuscular 02/06/2024 Administered Fluzone High Dose (65yr and older) Unknown 03/04/2022 Administered Fluzone High Dose (65yr and older) IM Intramuscular 02/06/2024 Administered COVID 19 Moderna Unknown 07/12/2020 Administered COVID 19 Moderna Unknown 07/12/2020 Administered COVID 19 Moderna Unknown 08/09/2020 Administered COVID 19 Moderna Unknown 03/12/2021 Administered COVID 19 Moderna Unknown 10/11/2021 Administered Problems Problem Type SNOMED Code ICD Code Onset Dates Problem Status W/U Status Risk Notes Problem Vitamin B12 deficiency (136483606) Vitamin B12 deficiency (266.2) Active confirmed Problem Essential hypertension (40868735) Essential (primary) hypertension (I10) Active confirmed Problem Hyperglycemia (67871502) Hyperglycemia (R73.9) Active confirmed Problem Knee pain (8432575775) Knee pain (M25.569) Active confirmed Problem Vitamin B12 deficiency (916956460) Vitamin B12 deficiency (E53.8) Active confirmed Problem Arthropathy (018585496) Arthropathy (M12.9) Active confirmed Problem Near syncope (551587452) Near syncope (R55) Active confirmed Problem Pure hypercholesterolemia (509905666) Pure hypercholesterolemia (E78.0) Active confirmed Problem Benign prostatic hypertrophy without outflow obstruction (452172692) Benign prostatic hyperplasia without lower urinary tract symptoms, prostatic enlargement of unspecified morphology (N40.0) Active confirmed Problem Allergic rhinitis caused by pollen (83011867) Seasonal allergic rhinitis due to pollen (J30.1) Active confirmed Problem Pure hypercholesterolemia (795476740) Pure hypercholesterolemia (E78.00) Active confirmed Problem Hearing loss (31488944) Hearing problem of both ears (H91.93) Active confirmed Problem Allergic rhinitis (44479128) Allergic rhinitis, unspecified seasonality, unspecified trigger (J30.9) Active confirmed Problem 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 (88337374196910016) 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) Active confirmed Vital Signs Heart Rate 77 /min 08/02/2024 Blood pressure diastolic 70 mm Hg 08/02/2024 Height 65.50 in 08/02/2024 Blood pressure systolic 120 mm Hg 08/02/2024 Weight 166.8 lbs 08/02/2024 BMI 27.33 kg/m2 08/02/2024 Encounters Encounter Location Date Provider Diagnosis [facility] [address] [facility] [address] [place] [id number] 02/06/2024 Harry Cabrera Essential (primary) hypertension I10 ; Coronary artery disease involving [place] coronary artery of [place] heart with other form of angina pectoris I25.118 ; Vitamin B12 deficiency E53.8 ; Benign prostatic hyperplasia without lower urinary tract symptoms, prostatic enlargement of unspecified morphology N40.0 ; Rhus dermatitis L25.5 ; Allergic rhinitis, unspecified seasonality, unspecified trigger J30.9 ; Screen for colon cancer Z12.11 and Encounter for immunization Z23 [facility] [address] [place], [place] [id number] 08/02/2024 Harry Cabrera Vitamin B12 deficien cy E53.8 ; Essential (primary) hypertension I10 ; Pure hypercholesterolemia E78.0 ; Arthropathy M12.9 ; Knee pain M25.569 ; BMI 27.0-27.9,adult Z68.27 and Pure hypercholesterolemia E78.00 [facility] [address] [place] [id number] 02/10/2024 Harry Cabrera Assessments Encounter Date Diagnosis (ICD Code) Assessment Notes Treatment Notes Treatment Clinical Notes Section Notes 02/06/2024 Essential (primary) hypertension (ICD-10 - I10) 02/06/2024 Coronary artery dise ase involving [place] coronary artery of [place] heart with other form of angina pectoris (ICD-10 - I25.118) 08/02/2024 Essential (primary) hypertension (ICD-10 - I10) 08/02/2024 Vitamin B12 deficien cy (ICD-10 - E53.8) 08/02/2024 Pure hypercholesterolemia (ICD-10 - E78.0) 02/06/2024 Vitamin B12 deficien cy (ICD-10 - E53.8) 08/02/2024 Arthropathy (ICD-10 - M12.9) 02/06/2024 Benign prostatic hyperplasia without lower urinary tract symptoms, prostatic enlargement of unspecified morphology (ICD-10 - N40.0) 02/06/2024 Rhus dermatitis (ICD -10 - L25.5) 08/02/2024 Knee pain (ICD-10 - M25.569) 08/02/2024 BMI 27.0-27.9,adult (ICD-10 - Z68.27) 02/06/2024 Allergic rhinitis, unspecified seasonality, unspecified trigger (ICD-10 - J30.9) 08/02/2024 Pure hypercholesterolemia (ICD-10 - E78.00) 02/06/2024 Screen for colon can cer (ICD-10 - Z12.11) 02/06/2024 Encounter for immunization (ICD-10 - Z23) Plan Of Treatment No Information Insurance Providers Payer Name Payer Address Payer Phone Subscriber Number Group Number Insured Name Patient Relationship to Insured Coverage Start Date Coverage End Date [employer] (MEDICAR E) [address] [address] [place] [address] [id number] Pablo Alford Self - patient is the insured Medications Administered Medication Instructions Date of Administration Dosage Notes B-12 07/21/2023 1 mL B-12 08/02/2024 1 mL Medical (General) History Medical History History ICD Code Coronary Artery Disease hypertension Vitamin B 12 deficiency BPH Surgical History Surgery Date(Month/Year) heart Cath 11/2019
[2024-11-15 10:15] LABS: Alanine Aminotransferase 23 U/L (12-78); Albumin Level 4.1 g/dl (3.5-5.0); Alkaline Phosphatase 94 U/L (38-126); Aspartate Amino Transferase 28 U/L (17-59); Bilirubin,Direct 0.5 mg/dl (0.0-0.4); Bilirubin,Indirect 1.0 mg/dL (0.0-0.9); Bilirubin,Total 1.5 mg/dl (0.2-1.3); Bilirubin,Unconjugated 1.0 mg/dL (0.0-1.1); Cholesterol 110 mg/dl (140-200); HDL Cholesterol 45 mg/dl (40-60); Total Protein,Serum 6.5 g/dl (6.3-8.2); Triglycerides 68 mg/dl (30-150)
== END 2024-11-15 23:59 | disposition home or self-care (01) ==
LOC: LAB 08:05
PROVIDERS: PCP Family Medicine; Visit Provider Nurse Practitioner
DX: I11.9 Hypertensive heart disease without heart failure (principal); K21.9 Gastro-esophageal reflux disease without esophagitis; E78.2 Mixed hyperlipidemia; I25.10 Atherosclerotic heart disease of native coronary artery without angina pectoris
CPT/HCPCS: 36415; 80061; 80076